=== PATIENT | female | born 1990 | race Hispanic/Latino ===

== ENCOUNTER 2018-10-04 19:37 | Inpatient (IN) | payer OTHER ==
[~2018-10-04 19:37] MED LIST: Lidocaine 2% MPF 10 ML AMP (For Epidural Use) ONE
[2018-10-04 20:06] VITALS: BMI 26.4
[2018-10-04] MEDS ORDERED: NS / Oxytocin 40 units/1000ml 1,000 ML IV PRN (20:29)
[2018-10-04] MEDS ORDERED: Acetaminophen/Codeine 30-300mg Tablet PO PRN ×2 (20:29)
[2018-10-04] MEDS ORDERED: Ondansetron PF 4 MG/2 ML Vial IVP PRN ×2 (20:29→23:54)
[2018-10-04] MEDS ORDERED: Lidocaine 1% (PF) 30 ML VIAL SC PRN (20:29)
[2018-10-04] MEDS ORDERED: Ibuprofen 800 MG TAB PO PRN (20:29)
[2018-10-04] MEDS ORDERED: Penicillin G Potassium 5 MILL.UNITS VIAL ONE (20:33)
[2018-10-04 20:44] LABS: Hemoglobin 11.8 g/dL (12.0-16.0); Mean Corpuscular Hemoglobin 29.6 pg (27.0-31.0); Mean Corpuscular Volume 84.6 fL (78.0-98.0); Platelet Count 105 thou/uL (130-400); RBC Distribution Width 11.7 % (11.5-14.5); Red Blood Cell (RBC) Count 3.97 mill/uL (4.20-5.40); White Blood Cell (WBC) Count 9.7 thou/uL (4.8-10.8)
[2018-10-04] MEDS ORDERED: Lactated Ringer's 1,000 ML IV SCH ×2 (20:45→21:45)
[2018-10-04] MEDS ORDERED: Fentanyl 4 mcg/Bup 0.1% Cadd 100 ML ONE (20:48)
[2018-10-04] MEDS ORDERED: Penicillin G Potassium 5 MILL.UNITS in Sodium Chloride 0.9% 100 ML IVPB SCH (21:00)
[2018-10-04] MEDS ORDERED: Lidocaine 1.5% w/Epi 1:200K 30 ML VIAL (Epid Use) ONE (21:22)
[2018-10-04 21:29] LABS: HBSAg Index 0.37 S/CO (0-0.99); Hep B Surf Ag Non-Reactive S/CO (NonReactive); Syphilis Antibody Nonreactive (Nonreactive); Syphilis Antibody Index 0.04 S/CO (<1.00 Non-Reactive)
[2018-10-04] MEDS ORDERED: Communication Order-Pharmacy FS SCH (23:45)
[2018-10-04] MEDS ORDERED: Fentanyl 4 mcg/Bupivacaine 0.1% Cassette 100 ML EPIDURAL SCH (23:45)
[2018-10-04] MEDS ORDERED: Promethazine HCl 25 MG/ML VIAL IM PRN (23:54)
[2018-10-04] MEDS ORDERED: diphenhydrAMINE 50 MG/ML VIAL IVP PRN (23:54)
[2018-10-04] MEDS ORDERED: Lactated Ringer's 500 ML IV PRN (23:54)
[2018-10-04] MEDS ORDERED: Naloxone HCl 0.4 mg/ml Vial IVP PRN ×2 (23:54)
[2018-10-04] MEDS ORDERED: Hydrocerin (Eucerin) Cream 120 gm Jar TOP PRN (23:54)
[2018-10-04] MEDS ORDERED: ePHEDrine/0.9% NaCl/PF SYRINGE 50 mg/10 ml SLOW IVP PRN (23:54)
[2018-10-04] MEDS ORDERED: Acetaminophen 325 MG TAB PO PRN (23:54)
[2018-10-05] MEDS ORDERED: Penicillin G 2.5 MILL.units 2.5 MILL.UNITS in Premix Bag 1 BAG IVPB SCH (01:00)
[2018-10-05] MEDS ORDERED: Lanolin Ointment 7 GM TUBE TOP PRN (02:25)
[2018-10-05] MEDS ORDERED: Benzocaine/Menthol 20-0.5% 60 ML CAN TOP PRN (02:25)
[2018-10-05] MEDS ORDERED: diphenhydrAMINE 25 MG CAP PO PRN (02:25)
[2018-10-05] MEDS ORDERED: Bisacodyl 10 MG SUPP PR PRN (02:25)
[2018-10-05] MEDS ORDERED: Preparation H Ointment 28 GM TUBE PR PRN (02:25)
[2018-10-05] MEDS ORDERED: Zolpidem Tartrate 5 MG TAB PO PRN (02:25)
[2018-10-05] MEDS ORDERED: Milk Of Magnesia 30 ML UDCUP PO PRN (02:25)
[2018-10-05] MEDS ORDERED: Adacel (T-DAP) 0.5 ML SYRINGE IM ONE (02:25)
[2018-10-05] MEDS ORDERED: Acetaminophen/Codeine 30-300mg Tablet PO PRN ×2 (02:25)
[2018-10-05] MEDS ORDERED: Ondansetron PF 4 MG/2 ML Vial IVP PRN (02:25)
[2018-10-05] MEDS ORDERED: Misoprostol 200 MCG TAB VAG PRN (02:25)
[2018-10-05] MEDS ORDERED: NS / Oxytocin 40 units/1000ml 1,000 ML IV SCH (02:30)
[2018-10-05] MEDS: Ibuprofen 800 MG TAB PO SCH ×2 (06:27→07:34)
[2018-10-05] MEDS ORDERED: Ferrous Sulfate 325 MG TAB PO SCH (08:00)
[2018-10-05 08:21] LABS: Hemoglobin 10.4 g/dL (12.0-16.0); Mean Corpuscular HGB CONC 33.9 g/dL (32.0-36.0); Mean Corpuscular Hemoglobin 28.6 pg (27.0-31.0); Mean Corpuscular Volume 84.5 fL (78.0-98.0); Mean Platelet Volume 10.5 fL (7.4-10.4); Platelet Count 94 thou/uL (130-400); RBC Distribution Width 11.6 % (11.5-14.5); Red Blood Cell (RBC) Count 3.63 mill/uL (4.20-5.40); White Blood Cell (WBC) Count 22.5 thou/uL (4.8-10.8)
[2018-10-05] MEDS ORDERED: Docusate Calcium (SURFAK) 240 MG CAP PO SCH (09:00)
[2018-10-05] MEDS: Ibuprofen 100 MG/5 ML UDCUP PO SCH ×2 (19:25→19:46)
[2018-10-05] MEDS: Prenatal Vitamin 1 TAB PO SCH (19:25)
[2018-10-05] MEDS: Docusate Sodium 100 MG/10 ML UDCUP PO SCH (20:35)
[2018-10-06] MEDS: Ibuprofen 100 MG/5 ML UDCUP PO SCH ×2 (05:21→14:52)
[2018-10-06 08:07] VITALS: BP 123/66; TEMP 97.6
[2018-10-06] MEDS: Docusate Sodium 100 MG/10 ML UDCUP PO SCH (08:52)
[2018-10-06] MEDS: Prenatal Vitamin 1 TAB PO SCH (08:52)
== END 2018-10-06 16:23 | disposition home or self-care (01) | DRG 805 ==
LOC: L&D/OP 19:37 → L&D 20:39 → 3SE 10-05 09:33
PROVIDERS: ADMIT Obstetrics & Gynecology; ATTEND Obstetrics & Gynecology
PROC: 10E0XZZ Delivery of Products of Conception, External Approach (ICD-10-PCS; principal; 2018-10-05)
PROC: 10907ZC Drainage of Amniotic Fluid, Therapeutic from Products of Conception, Via Natural or Artificial Opening (ICD-10-PCS; 2018-10-05)
PROC: 4A1HXCZ Monitoring of Products of Conception, Cardiac Rate, External Approach (ICD-10-PCS; 2018-10-05)
PROC: 4A1HXFZ Monitoring of Products of Conception, Cardiac Rhythm, External Approach (ICD-10-PCS; 2018-10-05)
DX: O71.82 Other specified trauma to perineum and vulva (principal); O45.8X3 Other premature separation of placenta, third trimester; Z37.0 Single live birth; Z3A.37 37 weeks gestation of pregnancy; O69.81X0 Labor and delivery complicated by cord around neck, without compression, not applicable or unspecified; O76 Abnormality in fetal heart rate and rhythm complicating labor and delivery; O99.824 Streptococcus B carrier state complicating childbirth
CPT/HCPCS: 36415; 51702; 85027; 86780; 86850; 86900; 86901; 87340; 99285; J2001; J2540

== ENCOUNTER 2020-03-14 04:55 | Inpatient (IN) | payer OTHER ==
[2020-03-14 05:32] VITALS: BMI 25.5
[2020-03-14] MEDS ORDERED: Penicillin G Potassium 5 MILL.UNITS VIAL ONE (05:38)
[2020-03-14] MEDS ORDERED: NS / Oxytocin 40 units/1000ml 1,000 ML IV SCH ×2 (05:45→08:45)
[2020-03-14] MEDS ORDERED: Lidocaine 1% (PF) 30 ML VIAL SC PRN (05:45)
[2020-03-14] MEDS ORDERED: NS w/ Oxytocin 10 units 500 ML IV SCH ×2 (05:45)
[2020-03-14] MEDS ORDERED: Penicillin G Potassium 5 MILL.UNITS in Sodium Chloride 0.9% 100 ML IVPB SCH (05:45)
[2020-03-14] MEDS ORDERED: Lidocaine 1% (PF) 30 ML VIAL ONE (05:46)
[2020-03-14] MEDS ORDERED: NS / Oxytocin 40 units/1000ml 1,000 ML ONE (05:46)
[2020-03-14] MEDS ORDERED: Acetaminophen 500 MG TAB PO PRN (05:47)
[2020-03-14] MEDS ORDERED: Promethazine HCl 25 MG/ML VIAL IM PRN (05:47)
[2020-03-14] MEDS ORDERED: Ondansetron PF 4 MG/2 ML Vial IVP PRN ×2 (05:47→08:35)
[2020-03-14] MEDS ORDERED: Lactated Ringer's 1,000 ML IV SCH (05:47)
[2020-03-14] MEDS ORDERED: Butorphanol Tartrate 1 MG/ML VIAL SLOW IVP PRN (05:47)
[2020-03-14 05:51] LABS: Mean Corpuscular HGB CONC 33.1 g/dL (32.0-36.0); Mean Corpuscular Hemoglobin 29.8 pg (27.0-31.0); Mean Platelet Volume 8.5 fL (7.4-10.4); Platelet Count 141 thou/uL (130-400); RBC Distribution Width 17.7 % (11.5-14.5); Red Blood Cell (RBC) Count 3.69 mill/uL (4.20-5.40); White Blood Cell (WBC) Count 10.6 thou/uL (4.8-10.8)
[2020-03-14] MEDS ORDERED: Fentanyl 4 mcg/Bup 0.1% Cadd 100 ML ONE (05:55)
[2020-03-14] MEDS ORDERED: Fentanyl 100 MCG/2 ML VIAL ONE (06:02)
[2020-03-14 06:33] LABS: HBSAg Index 0.12 S/CO (0-0.99); Hep B Surf Ag Non-Reactive S/CO (NonReactive)
[2020-03-14 06:34] LABS: Syphilis Antibody Nonreactive (Nonreactive); Syphilis Antibody Index 0.03 S/CO (<1.00 Non-Reactive)
[2020-03-14] MEDS ORDERED: Misoprostol 200 MCG TAB VAG PRN (08:35)
[2020-03-14] MEDS ORDERED: diphenhydrAMINE 25 MG CAP PO PRN (08:35)
[2020-03-14] MEDS ORDERED: Preparation H Ointment 28 GM TUBE PR PRN (08:35)
[2020-03-14] MEDS ORDERED: Bisacodyl 10 MG SUPP PR PRN (08:35)
[2020-03-14] MEDS ORDERED: Adacel (T-DAP) 0.5 ML SYRINGE IM ONE (08:35)
[2020-03-14] MEDS ORDERED: Acetaminophen/Codeine 30-300mg Tablet PO PRN ×2 (08:35)
[2020-03-14] MEDS ORDERED: Lanolin Ointment 7 GM TUBE TOP PRN (08:35)
[2020-03-14] MEDS ORDERED: Benzocaine-Menthol 82.5 ML CAN TOP PRN (08:35)
[2020-03-14] MEDS ORDERED: Zolpidem Tartrate 5 MG TAB PO PRN (08:35)
[2020-03-14] MEDS ORDERED: hydrALAZINE 20 MG/ML VIAL SLOW IVP PRN (08:35)
[2020-03-14] MEDS ORDERED: Milk Of Magnesia 30 ML UDCUP PO PRN (08:35)
[2020-03-14] MEDS ORDERED: Bupivacaine/Epinephrine 0.25% 30 ML VIAL ONE (08:59)
[2020-03-14] MEDS ORDERED: Penicillin G 2.5 MILL.units 50 ML IVPB SCH (10:00)
[2020-03-14] MEDS: Docusate Calcium (SURFAK) 240 MG CAP PO SCH ×2 (13:50→22:20)
[2020-03-14] MEDS: Ibuprofen 800 MG TAB PO SCH ×2 (13:58→22:20)
[2020-03-14] MEDS: Ferrous Sulfate 325 MG TAB PO SCH (18:00)
[2020-03-15] MEDS: Ibuprofen 800 MG TAB PO SCH (05:28)
[2020-03-15 06:47] LABS: Hemoglobin 9.6 g/dL (12.0-16.0); Mean Corpuscular HGB CONC 33.8 g/dL (32.0-36.0); Mean Corpuscular Hemoglobin 30.5 pg (27.0-31.0); Mean Corpuscular Volume 90.4 fL (78.0-98.0); Platelet Count 118 thou/uL (130-400); RBC Distribution Width 17.8 % (11.5-14.5); Red Blood Cell (RBC) Count 3.15 mill/uL (4.20-5.40)
[2020-03-15] MEDS: Ferrous Sulfate 325 MG TAB PO SCH ×2 (09:59→18:39)
[2020-03-15] MEDS: Docusate Calcium (SURFAK) 240 MG CAP PO SCH ×2 (09:59→22:33)
--- NOTE | 2020-03-15 12:02 | PDOC.PP ---
Post Progress Note Post Day #: 2 PO intake tolerated: yes Flatus: yes Ambulation: yes Vital Signs (12 hours) Temp Pulse Resp BP 03/15/20 05:30 97.7 F 70 15 111/66 Weight Weight 131 lb - Physical Examination General: NAD Cardiovascular: no m/r/g, RRR Respiratory: clear to auscultation bilaterally, non-labored breathing Abdominal: + bowel sounds, lochia, no distention, appropriately TTP Extremities: negative homans (B) Neurological: no gross focal deficits Psychiatric: A&Ox3, normal affect Result Diagrams: 03/15/20 06:33 Additional Labs: Post Labs Blood Type A POSITIVE 03/14/20 05:43 Hep Bs Antigen Non-Reactive S/CO (NonReactive) 03/14/20 05:41
[2020-03-15] MEDS: Ibuprofen 100 MG/5 ML UDCUP PO SCH ×2 (14:11→22:37)
[2020-03-16] MEDS: Ibuprofen 100 MG/5 ML UDCUP PO SCH (06:11)
[2020-03-16 08:48] VITALS: BP 132/64; TEMP 98.3
[2020-03-16] MEDS: Docusate Calcium (SURFAK) 240 MG CAP PO SCH (09:23)
[2020-03-16] MEDS: Ferrous Sulfate 325 MG TAB PO SCH (09:23)
--- NOTE | 2020-03-19 03:33 | PQF ---
Bell Lopez DAVID MD [id number] CLINICAL DOCUMENTATION CLARIFICATION FORM: POST DISCHARGE Addendum to original discharge summary date: ____ Late entry note date: __ DATE:03/19/2020 ATTN: Marcos Esparza Please exercise your independent, professional judgment in responding to the clarification form. Clinical indicators are provided on the bottom of this form for your review Please check appropriate box(s): [ ] Acute blood loss anemia [ ] Post-op anemia related to acute blood loss [ ] Chronic Anemia related to [ ] Other diagnosis: [ x] Unable to determine In addition, please specify: Present on Admission (POA): [ ] Yes [ ] No [ ] Unable to determine For continuity of documentation, please document condition throughout progress notes and discharge summary. Thank You. CLINICAL INDICATORS - SIGNS / SYMPTOMS / LABS Laboratory 03/14 RBC 3.69, Hgb 11.0, hct 33.2 Laboratory 03/15- RBC 3.15, Hgb 9.6, hct 28.5 Scanned PN p1 Estimated blood loss: Less than 100 cc Vital sign BP: 03/1408=839/56,105/57,98/50 03/1577=079/56 03/1684=289/64 H&P p1 03/14 Anemia RISK FACTORS H&P p1 03/14 Labor H&P p1 03/14 36 weeks of gestation Scanned PN p1 s/p TREATMENTS: DEC 06 Ferrous Sulfate 325 mg oral DEC 06 IV Lactated Ringer's 1L Hgb and hct monitoring ordered 03/14 (This form is maintained as a part of the permanent medical record) 2014 [employer] All Rights Reserved [email or web address]
== END 2020-03-16 13:50 | disposition home or self-care (01) | DRG 807 ==
LOC: L&D/OP 04:55 → L&D 05:24 → 3SW 12:26
PROVIDERS: ADMIT Obstetrics & Gynecology; ATTEND Obstetrics & Gynecology
PROC: 10E0XZZ Delivery of Products of Conception, External Approach (ICD-10-PCS; principal; 2020-03-14)
PROC: 10907ZC Drainage of Amniotic Fluid, Therapeutic from Products of Conception, Via Natural or Artificial Opening (ICD-10-PCS; 2020-03-14)
DX: O60.14X0 Preterm labor third trimester with preterm delivery third trimester, not applicable or unspecified (principal); Z37.0 Single live birth; Z3A.36 36 weeks gestation of pregnancy; O99.824 Streptococcus B carrier state complicating childbirth; O99.02 Anemia complicating childbirth; D64.9 Anemia, unspecified; O76 Abnormality in fetal heart rate and rhythm complicating labor and delivery; Z79.899 Other long term (current) drug therapy; Z28.21 Immunization not carried out because of patient refusal
CPT/HCPCS: 36415; 51702; 85027; 86780; 86850; 86900; 86901; 87340; 99285; J2001; J2540; J3010